=== PATIENT | male | born 1935 | race Caucasian/White ===

== ENCOUNTER → 2019-03-25 | Outpatient (CLI) | payer OTHER | END | disposition home or self-care (01) | LOC: CARD 14:24 | PROVIDERS: ATTEND Orthopaedic Surgery | DX: J44.9 Chronic obstructive pulmonary disease, unspecified (principal); R91.1 Solitary pulmonary nodule | CPT/HCPCS: 71046; 94060 ==

== ENCOUNTER → 2019-04-21 | Outpatient (CLI) | payer OTHER | END | disposition home or self-care (01) | LOC: CARD 08:00 | PROVIDERS: ATTEND Orthopaedic Surgery | DX: R06.02 Shortness of breath (principal) | CPT/HCPCS: 94726; 94729 ==